=== PATIENT | female | born 1955 | race Caucasian/White ===

== ENCOUNTER → 2022-06-30 | Outpatient (CLI) | payer BC, MEDICARE ==
[~2022-06-30] MED LIST: Aspirin PO; CALC1TAB2 PO; CHOL500050 PO; CLON0.1T PO; DOXA4TAB2 PO; DULA1.5P SQ; FAMO40TA7 PO; FLUO40CA49 PO; FURO40TA5 PO; HYDR-2132 PO; INSU200I4 SQ; LAMO150T PO; LISI20TA24 PO; LITH300T3 PO; LURA40TA2 PO; METO50TA18 PO; NITR0.4T SL; OXYB5TAB15 PO; ROSU40 PO; VIT1TABL6 PO
[2022-06-30 15:46] LABS: CREATININE 1.1 mg/dL (0.5-1.5); MAGNESIUM 2.2 mg/dL (1.80-2.40); POTASSIUM 4.3 mmol/L (3.5-5.1)
== END | disposition home or self-care (01) ==
LOC: LAB 08:39
PROVIDERS: ATTEND Internal Medicine Cardiovascular Disease
DX: I48.0 Paroxysmal atrial fibrillation (principal); I10 Essential (primary) hypertension
CPT/HCPCS: 36415; 80048; 83735

== ENCOUNTER → 2022-07-24 | Outpatient (CLI) | payer BC, MEDICARE ==
[2022-07-24 16:22] LABS: POTASSIUM 4.8 mmol/L (3.5-5.1)
== END | disposition home or self-care (01) ==
LOC: LAB 15:19
PROVIDERS: ATTEND Internal Medicine Cardiovascular Disease
DX: I10 Essential (primary) hypertension (principal)
CPT/HCPCS: 36415; 80048

== ENCOUNTER → 2022-08-02 | Outpatient (CLI) | payer BC, MEDICARE ==
[2022-08-02 12:35] LABS: CREATININE 0.8 mg/dL (0.5-1.5); POTASSIUM 4.2 mmol/L (3.5-5.1)
== END | disposition home or self-care (01) ==
LOC: LAB 11:25
PROVIDERS: ATTEND Internal Medicine Cardiovascular Disease
DX: I10 Essential (primary) hypertension (principal)
CPT/HCPCS: 36415; 80048

== ENCOUNTER → 2022-08-10 | Outpatient (CLI) | payer BC, MEDICARE ==
[2022-08-10 12:21] LABS: CREATININE 0.8 mg/dL (0.5-1.5); POTASSIUM 4.5 mmol/L (3.5-5.1)
== END | disposition home or self-care (01) ==
LOC: LAB 11:26
PROVIDERS: ATTEND Internal Medicine Cardiovascular Disease
DX: I10 Essential (primary) hypertension (principal)
CPT/HCPCS: 36415; 80048

== ENCOUNTER → 2022-12-06 | Outpatient (CLI) | payer BC, MEDICARE ==
[~2022-12-06] MED LIST changes: +DOXA-15 PO; -DOXA4TAB2 PO
[2022-12-06 12:15] LABS: CREATININE 0.9 mg/dL (0.5-1.5); POTASSIUM 4.4 mmol/L (3.5-5.1)
== END | disposition home or self-care (01) ==
LOC: LAB 09:43
PROVIDERS: ATTEND Internal Medicine Cardiovascular Disease
DX: I10 Essential (primary) hypertension (principal); I48.0 Paroxysmal atrial fibrillation
CPT/HCPCS: 36415; 80048

== ENCOUNTER 2023-02-15 11:46 | Emergency (ER) | payer BC, MEDICARE ==
[~2023-02-15] VITALS: Ht 170.2 cm; Wt 113.4 kg
[~2023-02-15 11:46] MED LIST changes: -OXYB5TAB15 PO; +OXYB5TAB20 PO
[2023-02-15 14:09] LABS: BASOPHILS # (AUTO) 0.04 K/uL (0.00-0.20); BASOPHILS % (AUTO) 0.5 % (0.0-5.0); EOSINOPHILS % (AUTO) 2.3 % (0.0-8.0); HEMATOCRIT 44.1 % (36-48); IMMATURE GRANULOCYTE ABSOLUTE 0.03 K/uL (0-1); LYMPHOCYTES # (AUTO) 1.3 K/uL (1.0-4.8); LYMPHOCYTES % (AUTO) 14.4 % (21.0-51.0); MEAN CORPUSCULAR HEMOGLOBIN 26.3 pg (27.0-33.0); MEAN CORPUSCULAR VOLUME 82.3 fL (79-99); MONOCYTES # (AUTO) 0.4 K/uL (0.1-1.0); MONOCYTES % (AUTO) 4.6 % (3.0-13.0); NEUTROPHILS # (AUTO) 6.8 K/uL (1.8-7.7); NEUTROPHILS % (AUTO) 77.9 % (40.0-77.0); PLATELET COUNT (AUTO) 262 K/uL (130-400); RED BLOOD CELL COUNT(AUTO) 5.36 MIL/uL (4.00-5.50); RED CELL DISTRIBUTION WIDTH 15.2 % (11.0-15.5); WHITE BLOOD COUNT (AUTO) 8.7 K/uL (4.8-10.8)
[2023-02-15 14:21] LABS: CREATININE 0.9 mg/dL (0.5-1.5)
[2023-02-15 14:22] LABS: INR 0.94 (0.85-1.15)
[2023-02-15 14:25] LABS: ALBUMIN 3.7 g/dL (3.5-5.0); BILIRUBIN,TOTAL 0.7 mg/dL (0.2-1.0); MAGNESIUM 1.8 mg/dL (1.80-2.40); TOTAL PROTEIN, SERUM 7.5 g/dL (6.0-8.3)
[2023-02-15 14:33] LABS: B-TYPE NATRIURETIC PEPTIDE 129 pg/mL (0-100)
[2023-02-15 14:34] LABS: APPEARANCE,URINE CLEAR (CLEAR); BILIRUBIN,URINE NEGATIVE (NEGATIVE); COLOR,URINE LIGHT-YELLOW (YELLOW); GLUCOSE, URINE (UA) NEGATIVE (NEGATIVE); KETONES,URINE NEGATIVE (NEGATIVE); LEUKOCYTE ESTERASE ,URINE 500 Leu/uL (NEGATIVE); NITRATE,URINE NEGATIVE (NEGATIVE); OCCULT BLOOD,URINE NEGATIVE (NEGATIVE); PH,URINE 6.5 (5.0-8.0); PROTEIN,URINE 10 mg/dL (NEGATIVE); UROBILINOGEN,URINE 0.2 mg/dL (0.2-1.0)
[2023-02-15 14:35] LABS: ADD UA MICROSCOPIC YES
[2023-02-15 14:40] LABS: BACTERIA,URINE FEW /HPF (None Seen); MUCUS,URINE FEW LPF (None Seen); RBC,URINE 0-1 /HPF (0-1); SQUAMOUS EPITHELIAL CELL,UR FEW /HPF (0-2); TRANSITIONAL EPI CELLS,URINE RARE /HPF (None Seen); WBC,URINE 26-50 /HPF (0-1)
[2023-02-15] MEDS ORDERED: CEFTRIAXONE 2GM VIAL IVPB ONE (16:30)
[2023-02-15 17:31] VITALS: BP 140/82; PULSE 90; RESP 16; O2SAT 99
[2023-02-15] MEDS ORDERED: CEPH500B PO (17:32)
== END 2023-02-15 18:00 | disposition home or self-care (01) ==
LOC: EDH 11:46
DX: I47.20 Ventricular tachycardia, unspecified (principal); N39.0 Urinary tract infection, site not specified; I10 Essential (primary) hypertension; E11.9 Type 2 diabetes mellitus without complications; E78.00 Pure hypercholesterolemia, unspecified; I25.10 Atherosclerotic heart disease of native coronary artery without angina pectoris; I48.91 Unspecified atrial fibrillation; Z86.73 Personal history of transient ischemic attack (TIA), and cerebral infarction without residual deficits; Z95.810 Presence of automatic (implantable) cardiac defibrillator; Z79.899 Other long term (current) drug therapy; Z90.89 Acquired absence of other organs
CPT/HCPCS: 99284; 96365; 71045; 82550; 83735; 84484; 80053; 83880; 85025; 85610; 87088; 81001; 36415; 93005; J0696

== ENCOUNTER → 2023-02-21 | Outpatient (CLI) | payer BC, MEDICARE ==
[~2023-02-21] MED LIST changes: +CEPH500B PO
== END | disposition home or self-care (01) ==
LOC: LAB 09:27
PROVIDERS: ATTEND Internal Medicine Cardiovascular Disease
DX: I10 Essential (primary) hypertension (principal)
CPT/HCPCS: 36415; 83735

== ENCOUNTER → 2023-03-16 | Outpatient (CLI) | payer BC, MEDICARE ==
[2023-03-16 11:52] LABS: MAGNESIUM 2.2 mg/dL (1.80-2.40); POTASSIUM 3.8 mmol/L (3.5-5.1)
== END | disposition home or self-care (01) ==
LOC: LAB 08:55
PROVIDERS: ATTEND Internal Medicine Cardiovascular Disease
DX: I10 Essential (primary) hypertension (principal); I48.0 Paroxysmal atrial fibrillation
CPT/HCPCS: 36415; 80048; 83735

== ENCOUNTER → 2023-03-23 | Outpatient (CLI) | payer BC, MEDICARE ==
[2023-03-23 12:46] LABS: CREATININE 0.9 mg/dL (0.5-1.5); MAGNESIUM 1.8 mg/dL (1.80-2.40); POTASSIUM 4.2 mmol/L (3.5-5.1)
== END | disposition home or self-care (01) ==
LOC: LAB 09:19
PROVIDERS: ATTEND Internal Medicine Cardiovascular Disease
DX: I48.0 Paroxysmal atrial fibrillation (principal); I10 Essential (primary) hypertension
CPT/HCPCS: 36415; 80048; 83735

== ENCOUNTER → 2023-03-29 | Outpatient (CLI) | payer BC, MEDICARE ==
[2023-03-29 16:22] LABS: CREATININE 1.1 mg/dL (0.5-1.5); POTASSIUM 4.6 mmol/L (3.5-5.1)
== END | disposition home or self-care (01) ==
LOC: LAB 13:59
PROVIDERS: ATTEND Internal Medicine Cardiovascular Disease
DX: I10 Essential (primary) hypertension (principal)
CPT/HCPCS: 36415; 80048

== ENCOUNTER → 2023-04-18 | Outpatient (CLI) | payer BC, MEDICARE ==
[2023-04-18 12:24] LABS: CREATININE 0.8 mg/dL (0.5-1.5); POTASSIUM 3.8 mmol/L (3.5-5.1)
== END | disposition home or self-care (01) ==
LOC: LAB 08:45
PROVIDERS: ATTEND Internal Medicine Cardiovascular Disease
DX: I10 Essential (primary) hypertension (principal)
CPT/HCPCS: 36415; 80048

== ENCOUNTER 2023-05-01 12:54 | Emergency (ER) | payer BC, MEDICARE ==
[~2023-05-01] VITALS: Ht 170.2 cm; Wt 111.1 kg
[2023-05-01] MEDS ORDERED: ACETAMINOPHEN 500 MG TABLET PO ONE (14:30)
[2023-05-01] MEDS ORDERED: METOPROLOL TARTRATE 1 MG/ML 5ML VIAL IV ONE (15:00)
[2023-05-01 15:07] LABS: SARS-CoV-2, RNA, NAAT NEGATIVE SARS CoV-2 (NEGATIVE)
[2023-05-01 15:10] LABS: RAPID GROUP A STREP negative (NEGATIVE)
[2023-05-01 15:20] LABS: INFLUENZA TYPE A Negative For Type A (NEGATIVE)
[2023-05-01] MEDS ORDERED: METOCLOPRAMIDE 10 MG/2 ML VIAL IVP ONE (15:30)
[2023-05-01 15:41] LABS: INFLUENZA TYPE B Positive For Type B (NEGATIVE)
[2023-05-01] MEDS ORDERED: OSEL75 PO (16:28)
[2023-05-01] MEDS ORDERED: ONDA4TAB10 PO (16:28)
[2023-05-01 16:36] VITALS: TEMP 98.6
[2023-05-01 16:40] VITALS: BP 124/81; PULSE 100; RESP 20; O2SAT 99
[2023-05-01] MEDS ORDERED: METO10TA41 PO (17:19)
== END 2023-05-01 17:27 | disposition home or self-care (01) ==
LOC: EDH 12:54
DX: J10.1 Influenza due to other identified influenza virus with other respiratory manifestations (principal); I48.91 Unspecified atrial fibrillation; R11.2 Nausea with vomiting, unspecified; E11.9 Type 2 diabetes mellitus without complications; E78.00 Pure hypercholesterolemia, unspecified; I10 Essential (primary) hypertension; I25.10 Atherosclerotic heart disease of native coronary artery without angina pectoris; Z79.4 Long term (current) use of insulin; Z79.899 Other long term (current) drug therapy; Z86.73 Personal history of transient ischemic attack (TIA), and cerebral infarction without residual deficits; Z95.810 Presence of automatic (implantable) cardiac defibrillator; Z20.822 Contact with and (suspected) exposure to COVID-19
CPT/HCPCS: 99284; 96374; 87635; 96375; 87880; 87804 ×2; 93005; J3490; J2765

== ENCOUNTER → 2023-05-22 | Outpatient (CLI) | payer BC, MEDICARE ==
[~2023-05-22] MED LIST changes: +APIX5TAB PO; -Aspirin PO; -CEPH500B PO; +CEPH500C2 PO; -CHOL500050 PO; -CLON0.1T PO; -DOXA-15 PO; -DULA1.5P SQ; -FAMO40TA7 PO; +FERS325 PO; +FLEC100T3 PO; -FLUO40CA49 PO; -FURO40TA5 PO; -HYDR-2132 PO; +INSLAN SQ; -INSU200I4 SQ; -LAMO150T PO; -LISI20TA24 PO; -LITH300T3 PO; +LOSA100T59 PO; -LURA40TA2 PO; +MAGN400T51 PO; -METO50TA18 PO; +NIFE-39 PO; +OXYB-66 PO; -OXYB5TAB20 PO; +PANT40TA54 PO; +VORT20TA PO; +[UNRECOGNIZED DRUG - CODE] PO
[2023-05-22 16:35] LABS: CREATININE 0.9 mg/dL (0.5-1.5); MAGNESIUM 2.3 mg/dL (1.80-2.40); POTASSIUM 4.7 mmol/L (3.5-5.1)
== END | disposition home or self-care (01) ==
LOC: LAB 12:53
PROVIDERS: ATTEND Internal Medicine Cardiovascular Disease
DX: I48.0 Paroxysmal atrial fibrillation (principal); I45.81 Long QT syndrome
CPT/HCPCS: 36415; 80048; 83735

== ENCOUNTER → 2023-07-16 | Outpatient (CLI) | payer BC, MEDICARE ==
[~2023-07-16] MED LIST changes: +ALPR0.5T PO; -CEPH500C2 PO; +CLIN-141 PO; +IOHEXOL 350 MG/ML 100ML INFUS..BTL IV ONE; +POTA10CA85 PO; +PROP80CA2 PO; +SPIR25TA6 PO; -VIT1TABL6 PO; -[UNRECOGNIZED DRUG - CODE] PO
== END | disposition home or self-care (01) ==
LOC: RAH 09:15
PROVIDERS: ATTEND Internal Medicine
DX: M47.815 Spondylosis without myelopathy or radiculopathy, thoracolumbar region (principal); K57.90 Diverticulosis of intestine, part unspecified, without perforation or abscess without bleeding; I70.90 Unspecified atherosclerosis; Q45.3 Other congenital malformations of pancreas and pancreatic duct; K65.1 Peritoneal abscess
CPT/HCPCS: 74177; Q9967 ×2

== ENCOUNTER → 2023-07-26 | Outpatient (CLI) | payer BC, MEDICARE ==
[~2023-07-26] MED LIST changes: -IOHEXOL 350 MG/ML 100ML INFUS..BTL IV ONE
[2023-07-26 12:17] LABS: BASOPHILS # (AUTO) 0.03 K/uL (0.00-0.20); BASOPHILS % (AUTO) 0.4 % (0.0-5.0); EOSINOPHILS # (AUTO) 0.24 K/uL (0.00-0.70); HEMATOCRIT 36.6 % (36-48); IMMATURE GRANULOCYTE ABSOLUTE 0.03 K/uL (0-1); LYMPHOCYTES # (AUTO) 0.9 K/uL (1.0-4.8); LYMPHOCYTES % (AUTO) 10.6 % (21.0-51.0); MEAN CORPUSCULAR HEMOGLOBIN 25.2 pg (27.0-33.0); MEAN CORPUSCULAR HGB CONC 30.6 g/dL (32.0-36.0); MEAN CORPUSCULAR VOLUME 82.2 fL (79-99); MONOCYTES # (AUTO) 0.7 K/uL (0.1-1.0); MONOCYTES % (AUTO) 9.1 % (3.0-13.0); NEUTROPHILS # (AUTO) 6.2 K/uL (1.8-7.7); NEUTROPHILS % (AUTO) 76.5 % (40.0-77.0); PLATELET COUNT (AUTO) 333 K/uL (130-400); RED BLOOD CELL COUNT(AUTO) 4.45 MIL/uL (4.00-5.50); RED CELL DISTRIBUTION WIDTH 17.1 % (11.0-15.5); WHITE BLOOD COUNT (AUTO) 8.1 K/uL (4.8-10.8)
[2023-07-26 12:40] LABS: CREATININE 0.8 mg/dL (0.5-1.0); POTASSIUM 4.1 mmol/L (3.5-5.1); THYROID STIMULATING HORMONE 1.39 uIU/mL (0.36-3.74)
== END | disposition home or self-care (01) ==
LOC: LAB 10:41
PROVIDERS: ATTEND Internal Medicine Cardiovascular Disease
DX: I48.0 Paroxysmal atrial fibrillation (principal)
CPT/HCPCS: 36415; 80048; 84443; 85025

== ENCOUNTER → 2023-11-23 | Outpatient (CLI) | payer BC, MEDICARE ==
[~2023-11-23] VITALS: Ht 170.2 cm; Wt 115.8 kg
[~2023-11-23] MED LIST changes: +NIFE-78 PO; +OXYB5TAB20 PO; -POTA10CA85 PO; +POTA10CA95 PO; +PROP120C2 PO; +TRINTELLIX PO
[2023-11-23 10:30] VITALS: BP 168/75; PULSE 54; RESP 16
[2023-11-23 10:53] LABS: BASOPHILS # (AUTO) 0.03 K/uL (0.00-0.20); BASOPHILS % (AUTO) 0.4 % (0.0-5.0); EOSINOPHILS # (AUTO) 0.24 K/uL (0.00-0.70); EOSINOPHILS % (AUTO) 3.5 % (0.0-8.0); HEMATOCRIT 40.2 % (36-48); IMMATURE GRANULOCYTE ABSOLUTE 0.04 K/uL (0-1); MEAN CORPUSCULAR HEMOGLOBIN 25.3 pg (27.0-33.0); MEAN CORPUSCULAR HGB CONC 31.3 g/dL (32.0-36.0); MEAN CORPUSCULAR VOLUME 80.6 fL (79-99); MONOCYTES # (AUTO) 0.4 K/uL (0.1-1.0); MONOCYTES % (AUTO) 6.1 % (3.0-13.0); NEUTROPHILS # (AUTO) 5.2 K/uL (1.8-7.7); NEUTROPHILS % (AUTO) 75.4 % (40.0-77.0); PLATELET COUNT (AUTO) 278 K/uL (130-400); RED BLOOD CELL COUNT(AUTO) 4.99 MIL/uL (4.00-5.50); RED CELL DISTRIBUTION WIDTH 16.7 % (11.0-15.5); WHITE BLOOD COUNT (AUTO) 6.9 K/uL (4.8-10.8)
[2023-11-23 11:00] LABS: CREATININE 0.9 mg/dL (0.5-1.0); POTASSIUM 4.8 mmol/L (3.5-5.1)
== END | disposition home or self-care (01) ==
LOC: DAH 10:00 → EDSTATUS 11-27 11:00
PROVIDERS: ATTEND Internal Medicine Cardiovascular Disease
DX: I47.10 Supraventricular tachycardia, unspecified (principal); I44.0 Atrioventricular block, first degree
CPT/HCPCS: 36415; 80048; 85025; 93005

== ENCOUNTER → 2023-12-03 | Outpatient (CLI) | payer BC, MEDICARE ==
[~2023-12-03] MED LIST changes: -CLIN-141 PO; -NIFE-39 PO; -NITR0.4T SL; -OXYB-66 PO; -PROP80CA2 PO; -SPIR25TA6 PO; -VORT20TA PO
[2023-12-03 16:29] LABS: POTASSIUM 4.4 mmol/L (3.5-5.1)
== END | disposition home or self-care (01) ==
LOC: LAB 11:32
PROVIDERS: ATTEND Internal Medicine Cardiovascular Disease
DX: I10 Essential (primary) hypertension (principal)
CPT/HCPCS: 36415; 80048

== ENCOUNTER → 2024-02-01 | Outpatient (CLI) | payer BC, MEDICARE ==
[2024-02-01 12:47] LABS: CREATININE 0.8 mg/dL (0.5-1.0); POTASSIUM 4.2 mmol/L (3.5-5.1)
== END | disposition home or self-care (01) ==
LOC: LAB 08:58
PROVIDERS: ATTEND Internal Medicine Cardiovascular Disease
DX: I48.0 Paroxysmal atrial fibrillation (principal)
CPT/HCPCS: 36415; 80048

== ENCOUNTER → 2024-02-08 | Outpatient (CLI) | payer BC, MEDICARE ==
[~2024-02-08] MED LIST changes: +IOHEXOL 350 MG/ML 100ML INFUS..BTL IV ONE
== END | disposition home or self-care (01) ==
LOC: RAH 08:54
PROVIDERS: ATTEND Internal Medicine Cardiovascular Disease
DX: I25.10 Atherosclerotic heart disease of native coronary artery without angina pectoris (principal); I48.0 Paroxysmal atrial fibrillation; M47.814 Spondylosis without myelopathy or radiculopathy, thoracic region; K44.9 Diaphragmatic hernia without obstruction or gangrene; Z90.49 Acquired absence of other specified parts of digestive tract; Z95.0 Presence of cardiac pacemaker
CPT/HCPCS: 71275; Q9967

== ENCOUNTER 2024-03-04 06:05 | Day surgery (SDC) | payer BC, MEDICARE ==
[2024-02-26 11:50] VITALS: BP 181/78; PULSE 58; RESP 20; TEMP 98.4
[2024-02-26 12:40] LABS: BASOPHILS # (AUTO) 0.02 K/uL (0.00-0.20); BASOPHILS % (AUTO) 0.3 % (0.0-5.0); EOSINOPHILS % (AUTO) 2.8 % (0.0-8.0); IMMATURE GRANULOCYTE ABSOLUTE 0.04 K/uL (0-1); LYMPHOCYTES # (AUTO) 0.9 K/uL (1.0-4.8); LYMPHOCYTES % (AUTO) 12.8 % (21.0-51.0); MEAN CORPUSCULAR HEMOGLOBIN 26.4 pg (27.0-33.0); MEAN CORPUSCULAR HGB CONC 31.5 g/dL (32.0-36.0); MEAN CORPUSCULAR VOLUME 83.7 fL (79-99); MONOCYTES # (AUTO) 0.5 K/uL (0.1-1.0); MONOCYTES % (AUTO) 6.5 % (3.0-13.0); NEUTROPHILS # (AUTO) 5.5 K/uL (1.8-7.7); PLATELET COUNT (AUTO) 245 K/uL (130-400); RED BLOOD CELL COUNT(AUTO) 4.78 MIL/uL (4.00-5.50); RED CELL DISTRIBUTION WIDTH 15.4 % (11.0-15.5); WHITE BLOOD COUNT (AUTO) 7.1 K/uL (4.8-10.8)
--- NOTE | 2024-02-26 12:40 | EKG ---
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
[2024-02-26 12:53] LABS: CREATININE 0.8 mg/dL (0.5-1.0); POTASSIUM 4.6 mmol/L (3.5-5.1)
[2024-02-26 12:55] LABS: INR 0.95 (0.85-1.15); PROTHROMBIN TIME 10.3 SEC (9.6-11.6)
[2024-02-26 12:56] LABS: PARTIAL THROMBOPLASTIN TIME 27.9 SEC (26.3-35.5)
--- NOTE | 2024-02-27 11:55 | NUR ---
RE: UTI INFORMED MARTHA LAMAR THAT PATIENT WAS PUT ON ANTIBIOTICS TODAY BY HER PCP FOR A UTI, WBC 7.1. NO NEW ORDERS RECEIVED.
[2024-02-28 08:40] VITALS: BP 188/93; PULSE 82; RESP 16; TEMP 98.1
[2024-02-28] MEDS: 0.9%NACL 1000ML 1,000 ML IV ONE (13:04)
--- NOTE | 2024-02-28 16:20 | NUR ---
DR. ODELL CAME IN AND SPOKE WITH PT AND ABOUT RESCHEDULING FOR SUNDAY. ALL 3 WERE IN AGREEMENT FOR THE RESCHEDULING. PT AND UNDERSTOOD
[~2024-03-04] VITALS: Ht 170.2 cm; Wt 118.7 kg
[2024-03-04] VITALS (17 sets, daily range): BP systolic 140–168; BP diastolic 67–91; PULSE 68–92; RESP 14–16; TEMP 97.2–97.7
[~2024-03-04 06:05] MED LIST changes: -IOHEXOL 350 MG/ML 100ML INFUS..BTL IV ONE; -LOSA100T59 PO; +NIFE-39 PO; -NIFE-78 PO; +NIFE90TA65 PO
[2024-03-04] MEDS ORDERED: 0.9%NACL 1000ML 1,000 ML IV ONE (06:15)
[2024-03-04] MEDS ORDERED: MIDAZOLAM HCL 1 MG/ML 2ML VIAL ONE (06:53)
[2024-03-04] MEDS ORDERED: proPOFol 10 MG/ML 20ML VIAL IV ONE (06:53)
[2024-03-04] MEDS ORDERED: LIDOCAINE PF 100MG/5ML (2%) SYRINGE 5ML ONE (06:53)
[2024-03-04] MEDS ORDERED: FENTanyl CITRate PF 50 MCG/1 ML 5ML AMP IV ONE (06:54)
[2024-03-04] MEDS ORDERED: rocuRONium bROMide 10MG/1ML 5ML VL ONE ×3 (06:54→12:13)
[2024-03-04] MEDS ORDERED: phenylEPHRINE HCL 10 MG/ML 1ML VIAL IV ONE ×2 (06:55→06:58)
[2024-03-04] MEDS ORDERED: ondanSETRON 4MG INJ ONE (06:55)
[2024-03-04] MEDS ORDERED: dexaMETHasone SOD PHOSPHATE 10MG/ML 1ML VIAL ONE (06:55)
[2024-03-04] MEDS ORDERED: ePHEDrine SULFate 50 MG/ML AMPULE ONE (06:56)
[2024-03-04] MEDS ORDERED: NEOSTIGMINE METHYLSULFATE 1MG/ML IV ONE (06:57)
[2024-03-04] MEDS ORDERED: GLYCOPYRROLATE 0.2 MG/ML 5 ML VIAL ONE (06:57)
[2024-03-04] MEDS ORDERED: LIDOCAINE HCL 400MG/20ML VIAL ONE (07:40)
[2024-03-04] MEDS ORDERED: HEParin-NS 1,000 UNIT/500 ML 1,000 ML IV ONE (07:40)
[2024-03-04] MEDS ORDERED: HEParin 10,000 UNIT/10ML (1,000 UNIT/ML) VIAL ONE ×2 (07:40→12:20)
[2024-03-04] MEDS ORDERED: HEParin-NS 1,000 UNIT/500 ML 500 ML IV ONE ×2 (07:46→08:23)
[2024-03-04] MEDS ORDERED: ISOPROTERENOL HCL 0.2 MG/ML AMP/VIAL/BAG ONE (11:58)
[2024-03-04] MEDS ORDERED: PROTamine SULFate 10 MG/ML 25ML VIAL IV ONE (12:37)
[2024-03-04] MEDS ORDERED: SUCR1TAB2 PO (13:11)
[2024-03-04] MEDS ORDERED: PANT40TA55 PO (13:11)
[2024-03-04] MEDS: SUCRALFATE 1 GM/10 ML PO SCH (15:42)
[2024-03-04] MEDS: PANTOPrazole 40 MG TAB DR PO ONE (15:43)
[2024-03-04] MEDS: APIXaban 5 MG TABLET PO ONE (16:04)
--- NOTE | 2024-03-04 16:35 | NUR ---
Full and complete discharge instructions given to Patient and Family both verbally and in writing. All questions answered. Voiced understanding to Ablation and Groin precautions and new Prescriptions. Right groin soft without hematoma or bleeding. No bruising evident. Pedal pulses intact to ble's. Patient denies c/o pain or discomfort. Voided moderate amount of clear yellow urine. PIV removed with catheter tip intact. W/C to POV with SisterJonelle to home.
[2024-03-05] MEDS ORDERED: PANTOPrazole 40 MG TAB DR PO SCH (09:00)
== END 2024-03-04 16:35 | disposition home or self-care (01) ==
LOC: DAH 06:05
PROVIDERS: ATTEND Internal Medicine Cardiovascular Disease
DX: I48.0 Paroxysmal atrial fibrillation (principal); I47.10 Supraventricular tachycardia, unspecified; F41.9 Anxiety disorder, unspecified; F32.A Depression, unspecified; I45.81 Long QT syndrome; Z96.643 Presence of artificial hip joint, bilateral; Z79.01 Long term (current) use of anticoagulants; Z90.49 Acquired absence of other specified parts of digestive tract; Z79.899 Other long term (current) drug therapy
CPT/HCPCS: 80048; 85025; 85610; 85730; 36415 ×2; 93005; 82948 ×2; 93656; 93657; 85347 ×6; J7030 ×2; A4215 ×2; A4222 ×2; A4221 ×2; A4663 ×2; A4216 ×2; A4606 ×2; C1894 ×3; C1732 ×3; C1730 ×3; A4649 ×2; C1760 ×3; C1766; J3010; J3490 ×7; J1100; J2003; J1644 ×5; J2250; J2704; J2405; J2710; J2371 ×2; A4223 ×6; J2720

== ENCOUNTER 2024-08-18 07:17 | Day surgery (SDC) | payer BC, MEDICARE ==
[2024-08-14 12:05] VITALS: BP 143/90; PULSE 109; RESP 18; TEMP 97.3
[2024-08-14 12:14] LABS: HEMATOCRIT 38.6 % (36-48); MEAN CORPUSCULAR HEMOGLOBIN 27.7 pg (27.0-33.0); MEAN CORPUSCULAR HGB CONC 32.1 g/dL (32.0-36.0); MEAN CORPUSCULAR VOLUME 86.2 fL (79-99); PLATELET COUNT (AUTO) 251 K/uL (130-400); RED BLOOD CELL COUNT(AUTO) 4.48 MIL/uL (4.00-5.50); RED CELL DISTRIBUTION WIDTH 14.9 % (11.0-15.5); WHITE BLOOD COUNT (AUTO) 6.4 K/uL (4.8-10.8)
[2024-08-14 12:15] LABS: BASOPHILS # (AUTO) 0.05 K/uL (0.00-0.20); BASOPHILS % (AUTO) 0.8 % (0.0-5.0); EOSINOPHILS # (AUTO) 0.15 K/uL (0.00-0.70); EOSINOPHILS % (AUTO) 2.4 % (0.0-8.0); IMMATURE GRANULOCYTE ABSOLUTE 0.02 K/uL (0-1); LYMPHOCYTES # (AUTO) 0.9 K/uL (1.0-4.8); LYMPHOCYTES % (AUTO) 13.7 % (21.0-51.0); MONOCYTES # (AUTO) 0.4 K/uL (0.1-1.0); MONOCYTES % (AUTO) 6.9 % (3.0-13.0); NEUTROPHILS # (AUTO) 4.8 K/uL (1.8-7.7); NEUTROPHILS % (AUTO) 75.9 % (40.0-77.0)
[2024-08-14 12:20] LABS: CREATININE 0.9 mg/dL (0.5-1.0); POTASSIUM 4.3 mmol/L (3.5-5.1)
[2024-08-18] VITALS (12 sets, daily range): BP systolic 120–154; BP diastolic 53–94; PULSE 44–105; RESP 11–20; TEMP 97–97.6
[~2024-08-18] VITALS: Ht 170.2 cm; Wt 116.6 kg
[~2024-08-18 07:17] MED LIST changes: +CA C1TAB98 PO; -CALC1TAB2 PO; +DILT180C77 PO; +FLEC150T2 PO; -INSLAN SQ; +L.AC1CAP6 PO; +LOPE2TAB26 PO; +LOSA100T59 PO; -NIFE-39 PO; -NIFE90TA65 PO; +toujeo SQ
--- NOTE | 2024-08-18 08:04 | EKG ---
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
[2024-08-18] MEDS: 0.9%NACL 1000ML 1,000 ML IV SCH (08:20)
--- NOTE | 2024-08-18 09:30 | NUR ---
CARDIOVERSION: APPROPRIATE TIME OUT PROCEDURE WAS PERFORMED INCLUDING PATIENTS IDENTIFICATION, PHYSICIAN, PATIENTS DATE OF AND PROCEDURE TO BE PERFORMED AT 09:30 WITH NO SAFETY ISSUES IDENTIFIED. MEDICATION (SEDATION) GIVEN AT 09:31 PER MARAINNE BELL CRNA. [address] ODELL , SUCCESSFUL TO SINUS BRADYCARDIA. PATIENT TOLERATED PROCEDURE WELL.
[2024-08-18] MEDS ORDERED: LIDOCAINE PF 100MG/5ML (2%) SYRINGE 5ML ONE (09:41)
[2024-08-18] MEDS ORDERED: proPOFol 10 MG/ML 20ML VIAL IV ONE (09:41)
--- NOTE | 2024-08-18 10:15 | NUR ---
CONSULT: NOTIFIED DR. ODELL PATIENT CONCERNED OF PULSE READING 44 - 48. OK TO DISCHARGE HOME, PT TO BE CONCERNED IF SYMPTOMATIC
--- NOTE | 2024-08-19 10:03 | EKG ---
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
--- NOTE | 2024-08-25 12:07 | PRN ---
Procedure Note Date of procedure: 08/18/2024 Diagnosis: Persistent atypical atrial flutter Procedure: 1. Cardioversion 2. ICD programming evaluation single x2 Physician: John Odell MD The patient was brought to the day patient area in a fasting state. The patient's ICD was interrogated and reprogrammed. Anesthesia was provided by the anesthesia service. Cardioversion was performed with a synchronized shock at 50 joules resulting in sinus rhythm. The patient tolerated the procedure well. The ICD was again interrogated and reprogrammed. Final diagnosis: Persistent atrial fibrillation, status post successful cardioversion Plan: 1. The patient will be discharged later today and will follow up with me in the office in approximately two weeks. JOHN ODELL MD August 25, 2024 12:07
== END 2024-08-18 10:30 | disposition home or self-care (01) ==
LOC: DAH 07:17
PROVIDERS: ATTEND Internal Medicine Cardiovascular Disease
DX: I48.4 Atypical atrial flutter (principal); I48.0 Paroxysmal atrial fibrillation; I48.19 Other persistent atrial fibrillation; I44.0 Atrioventricular block, first degree; I10 Essential (primary) hypertension; F41.9 Anxiety disorder, unspecified; G47.33 Obstructive sleep apnea (adult) (pediatric); J44.9 Chronic obstructive pulmonary disease, unspecified; E11.9 Type 2 diabetes mellitus without complications; E87.6 Hypokalemia; E83.42 Hypomagnesemia; I48.92 Unspecified atrial flutter; F32.9 Major depressive disorder, single episode, unspecified; Z86.73 Personal history of transient ischemic attack (TIA), and cerebral infarction without residual deficits; Z95.810 Presence of automatic (implantable) cardiac defibrillator; Z79.899 Other long term (current) drug therapy; Z79.01 Long term (current) use of anticoagulants; Z79.4 Long term (current) use of insulin; Z90.710 Acquired absence of both cervix and uterus; Z99.89 Dependence on other enabling machines and devices; Z90.89 Acquired absence of other organs; Z98.890 Other specified postprocedural states
CPT/HCPCS: 80048; 85025; 36415; 92960; 93005 ×2; 93287; 82948; J2003; J2704; A4620; A4215; A4222; A4221; A4663; A4216; A4606; A4223 ×3; J3490

== ENCOUNTER 2024-11-11 05:47 | Observation (INO) | payer BC, MEDICARE ==
--- NOTE | 2024-11-07 12:29 | EKG ---
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: [id number] : 1955 Requested By: VERONICA ODELL Order Number: [id number] Reading MD: Jorge Lamas Measurements Intervals [place] Rate: 85 P: 0 [place]: 0 QRS: 14 QRSD: 117 T: 31 QT: 469 QTc: 561 Interpretive Statements Accelerated junctional rhythm Nonspecific intraventricular conduction delay Prolonged QT interval Compared to ECG 08/18/2024 09:37:24 Accelerated junctional rhythm now present Intraventricular conduction delay now present Sinus bradycardia no longer present First degree AV block no longer present Electronically Signed On 11-09-2024 23:58:47 CDT by Jorge Lamas Please click the below link to view image of tracing.
[2024-11-07 12:32] LABS: IMMATURE GRANULOCYTE ABSOLUTE 0.02 K/uL (0-1); NUCLEATED RED BLOOD CELLS 0.0 % (0.0-0.19); PLATELET COUNT (AUTO) 220 K/uL (130-400); RED BLOOD CELL COUNT(AUTO) 4.82 MIL/uL (4.00-5.50); RED CELL DISTRIBUTION WIDTH 15.0 % (11.0-15.5); WHITE BLOOD COUNT (AUTO) 7.4 K/uL (4.8-10.8)
[2024-11-07 12:34] VITALS: BP 180/93; PULSE 85; RESP 18; TEMP 97.5
[2024-11-07 12:39] LABS: CREATININE 1.0 mg/dL (0.5-1.0); GLOMERULAR FILTR. RATE CALC 61.0 mL/min (>90); GLUCOSE,RANDOM 364.0 mg/dL (70-105); SODIUM SERUM 136.0 mmol/L (136-145); UREA NITROGEN, BLOOD 18.0 mg/dL (7-18)
[2024-11-07 12:42] LABS: INR 0.99 (0.85-1.15)
[~2024-11-11] VITALS: Ht 170.2 cm; Wt 114.8 kg
[2024-11-11] VITALS (24 sets, daily range): BP systolic 114–148; BP diastolic 53–86; PULSE 53–102; RESP 12–22; TEMP 97–99.1; O2SAT 99
[~2024-11-11 05:47] MED LIST changes: -CA C1TAB98 PO; +CALC-1255 PO; -FLEC100T3 PO; +INSU300I SQ; +INSU500V SQ; -PROP120C2 PO; +PROP80TA4 PO; -toujeo SQ
[2024-11-11] MEDS: 0.9%NACL 1000ML 1,000 ML IV ONE (06:09)
[2024-11-11] MEDS ORDERED: MIDAZOLAM HCL 1 MG/ML 2ML VIAL ONE (06:54)
[2024-11-11] MEDS ORDERED: SODIUM BICARB 50MEQ 50ML VIAL 50 ML ONE (07:27)
[2024-11-11] MEDS ORDERED: LIDOCAINE HCL 400MG/20ML VIAL ONE (07:27)
[2024-11-11] MEDS ORDERED: HEParin-NS 1,000 UNIT/500 ML 1,000 ML IV ONE (07:28)
[2024-11-11] MEDS ORDERED: NOREPINEPHRINE BITARTRATE 1 MG/1 ML ML IV ONE (12:07)
[2024-11-11 12:30] LABS: ABG BASE EXCESS -1.5 mmol/L (-2.0-3.0); ABG HCO3 23.5 mmol/L (21.0-28.0); ABG OXYGEN SATURATION 98.7 % (94.0-98.0); ABG PCO2 41 mmHg (32-45); ABG PH 7.380 (7.350-7.450); CARBON MONOXIDE 0.6 % (0.5-1.5); PO2, ARTERIAL BG 314.5 mmHg (83.0-108.0); TEMPERATURE, CELSIUS BG 37.0 CELSIUS (35.5-37.0); VENT MODE, BG SIMV PS 10 (ROOM AIR)
--- NOTE | 2024-11-11 12:58 | HMCSR ---
APPROVED REPORT EXAM: LIMITED Two-dimensional and M-mode echocardiogram. INDICATION ICD: pericardial effusion Left Ventricle Moderate concentric left ventricular hypertrophy. Left ventricular systolic function appears mildly r educed. Short axis views not obtained on this study. LVEF estimated 40%. Right Ventricle The right ventricle is normal size. Right ventricular systolic function is mildly reduced. Mitral Valve Mitral valve opens well. Tricuspid Valve Tricuspid valve opens well. Pericardium Small pericardial effusion seen posteriorly. No effusion seen anteriorly. Other Information Quality : Limited/Follow-upRhythm : Atrial Fibrillation Conclusion Limited echocardiogram to evaluate for pericardial effusion. Left ventricular systolic function appears mildly reduced. Short axis views not obtained on this stud y. LVEF estimated 40%. Moderate concentric left ventricular hypertrophy. Right ventricular systolic function is mildly reduced. Small pericardial effusion seen posteriorly. No effusion seen anteriorly.
[2024-11-11] MEDS ORDERED: GLYCOPYRROLATE 0.2 MG/ML 5 ML VIAL ONE (13:15)
[2024-11-11] MEDS ORDERED: NEOSTIGMINE METHYLSULFATE 1MG/ML IV ONE (13:15)
[2024-11-11] MEDS ORDERED: LOPERAMIDE HCL 2 MG CAP PO PRN (14:00)
[2024-11-11] MEDS: CALCIUM CARBONATE 600 MG PO SCH (21:00)
[2024-11-11] MEDS: PROPRANOLOL HCL 20 MG TAB PO SCH (21:47)
[2024-11-11] MEDS: FLECAINIDE ACETATE 100 MG TABLET PO SCH (21:48)
[2024-11-12 04:00] VITALS: BP 148/73; PULSE 56; RESP 20; TEMP 98.2
[2024-11-12 04:31] LABS: IMMATURE GRANULOCYTE ABSOLUTE 0.02 K/uL (0-1); NUCLEATED RED BLOOD CELLS 0.0 % (0.0-0.19); PLATELET COUNT (AUTO) 203 K/uL (130-400); RED BLOOD CELL COUNT(AUTO) 3.85 MIL/uL (4.00-5.50); RED CELL DISTRIBUTION WIDTH 15.4 % (11.0-15.5); WHITE BLOOD COUNT (AUTO) 3.7 K/uL (4.8-10.8)
[2024-11-12 04:41] LABS: ASPARTATE AMINOTRANSFERASE 22.0 U/L (10-37); CREATININE 0.9 mg/dL (0.5-1.0); GLOMERULAR FILTR. RATE CALC 70.0 mL/min (>90); GLUCOSE,RANDOM 137.0 mg/dL (70-105); SODIUM SERUM 137.0 mmol/L (136-145); TOTAL PROTEIN, SERUM 5.7 g/dL (6.0-8.3); UREA NITROGEN, BLOOD 16.0 mg/dL (7-18)
[2024-11-12 08:00] VITALS: BP 171/83; PULSE 62; RESP 20; TEMP 98; O2SAT 95
[2024-11-12] MEDS: (L.acidoph & Paracasei,B.lactis (Probiotic) 1 EACH) PO SCH (09:00)
[2024-11-12] MEDS: TRINTELLIX 20 MG PO SCH (09:00)
[2024-11-12] MEDS: MAGNESIUM OXIDE 400 MG TABLET PO SCH (09:42)
[2024-11-12] MEDS: PoTASSium chl 10% ELIXIR 20MEQ 20 MEQ/15 ML UDCUP PO SCH (09:44)
--- NOTE | 2024-11-12 09:46 | NUR ---
LANTUS PATIENT REFUSED LANTUS FOR THIS MORNING.
--- NOTE | 2024-11-12 10:32 | PN ---
[facility] ELECTROPHYSIOLOGY DISCHARGE NOTE Date Patient Seen: Nov 12, 2024 Time of Visit: 10:22 Interval History: The patient is a 69-year-old woman with a long history of atrial arrhythmias, hereditary long QT syndrome, and mild cognitive deficit (memory) due to previous stroke. She underwent pulmonary vein isolation with posterior wall isolation back in February of 2024. She was admitted with a episodes of atypical atrial flutter and underwent catheter ablation yesterday. Full details are in the report. She had dandre-mitral atrial flutter in the setting of an extremely diseased atrial septum. Two ablation lines were created. The patient did well overnight without any further arrhythmias. It was noted however that she became bradycardic requiring pacing from her device. This is programmed VVI 55 bpm as it is a single-chamber Biotronik DX device. She was asymptomatic. An echocardiogram was done this morning which shows a small posterior pericardial effusion which is chronic. Laboratory: [ ] Hematology Labs: Test 11/12/24 04:00 Range/Units White Blood Count 3.7 L 4.8-10.8 K/uL Red Blood Count 3.85 L 4.00-5.50 MIL/uL Hemoglobin 10.4 L 12.0-16.0 g/dL Hematocrit 32.3 L 36-48 % Mean Corpuscular Volume 83.9 79-99 fL Mean Corpuscular Hemoglobin 27.0 27.0-33.0 pg Mean Corpuscular Hemoglobin Concent 32.2 32.0-36.0 g/dL Red Cell Distribution Width 15.4 11.0-15.5 % Platelet Count 203 130-400 K/uL Mean Platelet Volume 11.9 H 7.5-10.5 fL Immature Granulocyte % (Auto) 0.5 0-1 % Neutrophils (%) (Auto) 79.3 H 40.0-77.0 % Lymphocytes (%) (Auto) 10.9 L 21.0-51.0 % Monocytes (%) (Auto) 7.1 3.0-13.0 % Eosinophils (%) (Auto) 1.4 0.0-8.0 % Basophils (%) (Auto) 0.8 0.0-5.0 % Neutrophils # (Auto) 2.9 1.8-7.7 K/uL Lymphocytes # (Auto) 0.4 L 1.0-4.8 K/uL Monocytes # (Auto) 0.3 0.1-1.0 K/uL Eosinophils # (Auto) 0.05 0.00-0.70 K/uL Basophils # (Auto) 0.03 0.00-0.20 K/uL Absolute Immature Granulocyte (auto 0.02 0-1 K/uL Nucleated Red Blood Cells 0.0 0.0-0.19 % Chemistry Labs: Test 11/12/24 05:25 11/12/24 04:00 Range/Units Whole Blood Glucose 133 H 70-110 MG/DL Sodium Level 137 136-145 mmol/L Potassium Level 4.0 3.5-5.1 mmol/L Chloride Level 105 101-111 mmol/L Carbon Dioxide Level 27 21-32 mmol/L Blood Urea Nitrogen 16 7-18 mg/dL Creatinine 0.9 0.5-1.0 mg/dL Glomerular Filtration Rate Calc 70 >90 mL/min Random Glucose 137 H 70-105 mg/dL Total Calcium 8.3 L 8.5-10.1 mg/dL Total Bilirubin 0.7 0.2-1.0 mg/dL Aspartate Amino Transf (AST/SGOT) 22 10-37 U/L Alanine Aminotransferase (ALT/SGPT) 19 12-78 U/L Alkaline Phosphatase 87 50-136 U/L Total Protein 5.7 L 6.0-8.3 g/dL Albumin 2.8 L 3.5-5.0 g/dL Impression: 1. The patient can be discharged home today 2. Continue all current medications 3. The patient will be going out of town for approximately a month so I will see her in follow up next Sunday. 4. At the time of her follow up appointment, we will address whether or not her medications should be altered (she is on propranolol, flecainide and diltiazem). I will also address possible upgrade of her device with the addition of an atrial lead. 5. This was discussed with the patient in person and her who was on the phone. VERONICA ODELL MD Nov 12, 2024 10:31
--- NOTE | 2024-11-12 11:06 | NUR ---
DISCHARGE HOME IV, TELEPAK AND ID BANDS REMOVED. DISCHARGE INSTRUCTIONS GIVEN AND EXPLAINED TO PATIENT. BELONGINGS TAKEN BY SPOUSE. PATIENT WHEELED DOWN TO PRIVATE CAR
[2024-11-12] MEDS ORDERED: FERROUS SULFATE 325 MG TABLET.DR PO SCH (12:00)
--- NOTE | 2024-11-12 18:12 | HMCSR ---
APPROVED REPORT EXAM: Two-dimensional and M-mode echocardiogram with Doppler and color Doppler. INDICATION ICD: Atrial flutter Atrial Fibrillation 2D Dimensions RVDd4.4 cmLVEF(%)49.5 (>50%)LVED Vol(simp.)117.0 mL IVSd1.1 (0.7-1.1cm)FS(%)25 %LVES Vol(simp.)55.0 mL LVDd5.2 (3.8-5.6cm)LA (2D)5.1 (1.6-4.0cm)LVEF(%, simp.)53 % PWd1.3 (0.7-1.1cm)Ao Root(2D)3.0 (2.0-3.7cm)LA ESV INDEX (BP)39.31 mL/m2 IVSs1.3 cmLVOT diam2.1 (1.8-2.4cm) LVDs3.9 (2.5-4.0cm)IVC diam2.5 cm PWs1.4 cm Deformation Strain Apical 4-12.0 % Apical 2-13.0 % Apical 3-11.9 % Global Strain-12.3 % M-Mode Dimensions EPSS0.8 cm LA (MM)5.2 (1.6-4.0cm) Ao Root(MM)3.5 (2.0-3.7cm) Aortic Valve AoV Vmax1.0 m/Dane Peak GR4.3 mmHgLVOT Vmax1.0 m/s AoV VTI0.2 mAo Mean GR2.5 mmHgLVOT VTI0.21 m DANIELLE (VMAX)3.15 cm2AVA (VTI) 3.2 cm2 Mitral Valve MV E Ufey268.7 cm/sDECEL Otyi299 ms MV A Vmax34.6 cm/sP 1/2 T31 ms E/A ratio4.0MVA (PHT)7.2 cm2 TDI E/E' Mfnons14.1E/E' Zqvbdkj85.3 Medial E' Peak V4.54 cm/sLateral E' Peak V5.40 cm/s Pulmonary Valve PV Vmax1.0 m/sPV VTI0.24 mPV Mean GR2.4 mmHg PV Peak GR3.8 mmHgPI End Gisela. Tam 152.1 cm/s Tricuspid Valve TR Vmax3.1 m/sRAP (EST) 8 ykGqLHYH70.5 mmHg TR Peak GR44.5 mmHg Left Ventricle The left ventricle is normal size. GLS -12.0% There is normal left ventricular wall thickness. LVEF i s 50-55%. 3D volume EF 51%. Stage III diastolic dysfunction. Right Ventricle The right ventricle is mildly dilated. The right ventricular systolic function is normal. Device lead is present in the right ventricle. Atria The left atrium is mildly dilated. The right atrium is moderately dilated. Aortic Valve The aortic valve is normal in structure. No aortic regurgitation is present. There is no aortic valvu lar stenosis. Mitral Valve Mitral valve is not well visualized. Mild posterior annular calcification noted. Mitral regurgitation is trace. There is no mitral valve stenosis. Tricuspid Valve The tricuspid valve is normal in structure. There is mild tricuspid valve regurgitation noted. RVSP 5 2.0mmHg. Pulmonic Valve The pulmonary valve is normal in structure. There is trace of pulmonic valvular regurgitation. Great Vessels The aortic root is normal in size. IVC is dilated and collapses >50% with inspiration. Pericardium Small pericardial effusion seen posteriorly. No echo indications of pericardial tamponade. Other Information Quality : Adequate Conclusion The left ventricle is normal size. LVEF is 50-55%. 3D volume EF 51%. Stage III diastolic dysfunction. The right ventricle is mildly dilated. The right ventricular systolic function is normal. There is mild tricuspid valve regurgitation noted. RVSP 52.0mmHg. IVC is dilated and collapses >50% with inspiration. Small pericardial effusion seen posteriorly. No echo indications of pericardial tamponade.
== END 2024-11-12 11:00 | disposition home or self-care (01) ==
LOC: DAH 05:47 → DAHIP 05:48 → DAH 05:48 → 2AH 17:00
PROVIDERS: ADMIT Internal Medicine Cardiovascular Disease; ATTEND Internal Medicine Cardiovascular Disease
DX: I48.11 Longstanding persistent atrial fibrillation (principal); I48.4 Atypical atrial flutter; I45.81 Long QT syndrome; R07.89 Other chest pain; I10 Essential (primary) hypertension; F41.9 Anxiety disorder, unspecified; F32.9 Major depressive disorder, single episode, unspecified; E66.9 Obesity, unspecified; E78.5 Hyperlipidemia, unspecified; E11.9 Type 2 diabetes mellitus without complications; Z86.73 Personal history of transient ischemic attack (TIA), and cerebral infarction without residual deficits; Z95.810 Presence of automatic (implantable) cardiac defibrillator; Z79.899 Other long term (current) drug therapy; Z98.890 Other specified postprocedural states
CPT/HCPCS: 80048; 85025 ×2; 85610; 85730; 36415 ×3; 93005; 93462; 93653; 93655; 93662; 96372; 82435; 82947; 84132; 84295; 82803; 85347 ×9; 85018; 82948 ×4; 83605; 93308; 80053; 93306; 93356; 76376; C1769; C1894 ×3; C1732 ×3; A4649 ×2; C1760 ×3; C1766; G0378 ×21; J3010 ×3; J3490 ×6; J7030; J2720; J1644 ×6; J2250; J2704 ×2; J2710; J2371; A4215; A4223 ×3; A4222; A4221; A4663; A4216; A4606

== ENCOUNTER 2025-01-29 08:48 | Day surgery (SDC) | payer BC, MEDICARE ==
[2025-01-27 11:07] LABS: IMMATURE GRANULOCYTE ABSOLUTE 0.04 K/uL (0-1); NUCLEATED RED BLOOD CELLS 0.0 % (0.0-0.19); PLATELET COUNT (AUTO) 266 K/uL (130-400); RED BLOOD CELL COUNT(AUTO) 4.52 MIL/uL (4.00-5.50); RED CELL DISTRIBUTION WIDTH 15.0 % (11.0-15.5); WHITE BLOOD COUNT (AUTO) 8.1 K/uL (4.8-10.8)
[2025-01-27 11:12] LABS: CREATININE 1.1 mg/dL (0.5-1.0); GLOMERULAR FILTR. RATE CALC 55.0 mL/min (>90); GLUCOSE,RANDOM 176.0 mg/dL (70-105); SODIUM SERUM 141.0 mmol/L (136-145); UREA NITROGEN, BLOOD 18.0 mg/dL (7-18)
[2025-01-27 11:14] LABS: INR 1.03 (0.85-1.15)
[2025-01-27 11:33] VITALS: BP 140/97; PULSE 46; RESP 14; TEMP 97.6
--- NOTE | 2025-01-27 11:54 | EKG ---
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
[2025-01-29] VITALS (8 sets, daily range): BP systolic 121–165; BP diastolic 57–77; PULSE 48–67; RESP 14–19; TEMP 97.4–97.6
[~2025-01-29] VITALS: Ht 170.2 cm; Wt 113.2 kg
[~2025-01-29 08:48] MED LIST changes: -DILT180C77 PO; +DILT240C97 PO; -LOPE2TAB26 PO
[2025-01-29] MEDS: 0.9%NACL 1000ML 1,000 ML IV SCH (10:39)
[2025-01-29] MEDS ORDERED: SODIUM BICARB 50MEQ 50ML VIAL 50 ML ONE (16:50)
[2025-01-29] MEDS ORDERED: LIDOCAINE HCL 1% MDV 50ML VIAL ONE (16:50)
[2025-01-29] MEDS ORDERED: MIDAZOLAM HCL 1 MG/ML 2ML VIAL ONE ×2 (16:59→17:02)
[2025-01-29] MEDS ORDERED: IOHEXOL-350 50ML VIAL IV ONE ×2 (17:30→18:16)
[2025-01-29] MEDS ORDERED: BACITRACIN 1 EACH PACKET TP ONE (19:05)
--- NOTE | 2025-01-29 20:44 | NUR ---
chest xray seen by Dr Monroy and icd lead placement confirmed. pt okay to be discharged when bedrest if finished.
--- NOTE | 2025-01-29 21:44 | HMCIMG ---
EXAM: CR Chest, 1 view CLINICAL HISTORY: Status post arterial lead. COMPARISON: None provided. FINDINGS: The lungs show no infiltrates or other acute findings. No pleural effusion or pneumothorax. Mild cardiomegaly. Mild atherosclerotic aorta. Left-sided cardiac pacemaker device in place with intact leads around the right atrium and right ventricle. No acute osseous abnormality. IMPRESSION: Mild cardiomegaly. Left-sided cardiac pacemaker device in place with intact leads around the right atrium and right ventricle. The lungs are clear. /[facility]
== END 2025-01-29 22:10 | disposition home or self-care (01) ==
LOC: DAH 08:48
PROVIDERS: ATTEND Internal Medicine Cardiovascular Disease
DX: I42.8 Other cardiomyopathies (principal); I48.0 Paroxysmal atrial fibrillation
CPT/HCPCS: 80048; 85025; 85610; 85730; 36415; 93005; 33263; 99156; 99157 ×6; 82948; 71045; A4223 ×3; C1769 ×2; C1721; C1896; C1895; J1200; J3010; J0690; J0665; J3490 ×2; J0360; J2250 ×2; Q9967 ×2; A4215; A4222; A4221; A4663; A4216; A4606